=== PATIENT | female | born 1985 | race Asian ===

== ENCOUNTER 2018-01-18 14:41 | Outpatient (CLI) | payer BC ==
--- NOTE | 2018-01-18 17:49 | MRI ---
LUMBAR SPINE AND SACROILIAC JOINT MRI: HISTORY: The patient fell six years ago. Low back pain and SI joint dysfunction. COMPARISON: None. TECHNIQUE: A lumbar spine MRI is performed without intravenous Gadolinium administration. Multisequential, mult iplanar imaging is performed. Evaluation of the sacroiliac joints is performed with axial and coronal weighted images. FINDINGS: The visualized uterus and adnexal structures are grossly unremarkable. Bilateral ovarian follicle ar e noted. A dominant right ovarian follicle is identified. There is nonspecific fluid in the endomet rial canal. The sacrum has an appropriate T1 marrow signal intensity. The sacroiliac joints appear to have symme tric signal intensity. There does appear to be some nonspecific sclerosis of the sacrum and lesley, al litzy the SI joint. Lumbar vertebral body heights are maintained. No fracture. Appropriate T1 marrow signal intensity o f the lumbar vertebrae. No significant STIR hyperintensity to suggest lumbar spine vertebral body ed farida or ligamentous injury. The conus medullaris terminates at the L1-L2 disk space. Symmetric signal intensity of the psoas mus cles and visualized solid organs. T12-L1: Adequate disk hydration. No significant central canal stenosis. The foramina are patent. L1-L2: Adequate disk hydration. No significant central canal stenosis or foraminal narrowing. The neural foramina are patent. L2-L3: Adequate disk hydration. No significant central canal stenosis. The foramina are patent. L3-L4: Adequate disk hydration. No significant central canal stenosis. The foramina are patent. L4-L5: Adequate disk hydration. No significant central canal stenosis. The foramina are patent. L5-S1: No significant posterior disk abnormality. No significant central canal stenosis. The neura l foramina are patent. Adequate disk hydration. IMPRESSION: 1. No significant central canal stenosis or foraminal narrowing. 2. 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 Sclerosis is noted on previous CT from 2012 and is of doubtful significanc e. Even though there is sclerosis, which is nonspecific, the sacroiliac joint spaces appear to be sy mmetric and preserved. There are no erosive or destructive changes appreciated by MRI. POS: [facility]
== END 2018-01-18 14:42 | disposition home or self-care (01) ==
LOC: SCSMRI 14:41
PROVIDERS: ATTEND Family Medicine
DX: M53.3 Sacrococcygeal disorders, not elsewhere classified (principal)
CPT/HCPCS: 72148